=== PATIENT | female | born 1935 | race Caucasian/White ===

== ENCOUNTER → 2019-11-04 | Outpatient (CLI) | payer OTHER ==
[~2019-11-04] MED LIST: ADULT LOW DOSE81 MG PO; BONIVA150 MG PO; BYSTOLIC 5 MG5 M1 PO; HYDROCHLOROTHIA25 M1 PO; TRAVATAN 0.004%5 ML OP
--- NOTE | 2019-11-05 16:05 | SLEEP ---
[address] [address] SLEEP STUDY REPORT Name: DAPHNEDELMAR Elio Room: [facility]#: [id number] Admission: 11/04/19 Attend Phys: Erika Laughlin MD Discharge: Date of : 39 Report #: [id number] THIS REPORT FOR: //name// CC: Erika Laughlin This study has been reviewed in its entirety by a board certified sleep specialist DATE OF SERVICE: 11/04/2019 REFERRING PHYSICIAN: Erika Laughlin MD The patient is 84 years old, who weighs 215 pounds with a BMI of 34.7. The patient's [place] score was 7. The patient underwent diagnostic sleep study performed at [facility]. During the night study, the patient spent 451 minutes in bed and slept for 243 minutes with a sleep efficiency of 53%, which is low. Sleep latency was 43 minutes with a REM latency of 233 minutes. Sleep architecture showed normal stage 1 sleep, increased stage 2 sleep, normal slow wave, and reduced REM sleep. During the night study, the patient had 11 obstructive apneas, 1 central apnea, no mixed apneas, and 20 hypopneas. The patient's AHI was 7.9 per hour with a supine AHI of 10.5 per hour. No significant REM sleep-related SAADIA seen. EKG monitoring revealed an average heart rate of 61 beats per minute. No sustained arrhythmias observed. PLMs were seen at an index of 114 per hour and 10 per hour caused EEG arousals. Nocturnal oximetry study revealed an average oxygen saturation of 94% with lowest of 89%. Due to low AHI, the patient did not meet the split night criteria for CPAP initiation. IMPRESSION: 1. Mild sleep apnea-hypopnea syndrome at an AHI of 7.9 per hour. 2. 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 3. Severe periodic limb movements. 4. No clinically significant nocturnal hypoxia. RECOMMENDATIONS: 1. The patient did not meet the split night criteria for CPAP initiation [place] [address] SLEEP STUDY REPORT Name: DELMAR SERNA Room: [facility]#: [id number] Admission: 11/04/19 Attend Phys: Erika Laughlin MD Discharge: Date of : 39 Report #: [id number] 2. The patient has mild sleep apnea. I would recommend weight loss as the initial form of treatment. 3. If the patient remains clinically symptomatic or has other comorbid conditions, then consider treatment of sleep apnea with either CPAP or oral appliance. 4. If the patient's insomnia is chronic, then it should be further evaluated and treated according to the etiology. 5. The patient should also be further evaluated for symptoms of restless legs during the day. The patient had severe PLMs. 6. Avoid [employer] depressants. 7. Cautioned regarding driving until the patient's hypersomnia is resolved with the above recommendations. <ELECTRONICALLY SIGNED> By: Rich Hale MD 11/05/19 1605 [id number] Hale MD /nt
== END ==
LOC: M.SLEEPLAB 19:55
DX: G47.33 Obstructive sleep apnea (adult) (pediatric) (principal); G47.34 Idiopathic sleep related nonobstructive alveolar hypoventilation

== ENCOUNTER 2019-11-19 14:55 | Emergency (ER) | payer OTHER ==
[~2019-11-19] VITALS: Ht 167.6 cm; Wt 97.5 kg
[~2019-11-19 14:55] MED LIST changes: +FUROSEMIDE 20 M20 MG PO; -HYDROCHLOROTHIA25 M1 PO
[2019-11-19] MEDS ORDERED: FAMOTIDINE40 MG PO (15:11)
[2019-11-19] MEDS ORDERED: CELEBREX 200 M200 MG PO (15:11)
[2019-11-19] MEDS ORDERED: OMEPRAZOLE40 MG PO (15:11)
[2019-11-19] MEDS ORDERED: TOPROL XL100 MG PO (15:12)
[2019-11-19] MEDS ORDERED: PRESERVISION A1 EAC2 PO (15:12)
[2019-11-19] MEDS ORDERED: LIPITOR40 MG PO (15:12)
[2019-11-19] MEDS ORDERED: XALATAN2.5 ML OPHTHALMIC (15:12)
[2019-11-19] MEDS ORDERED: KLOR-CON 10 ER10 MEQ PO (15:12)
[2019-11-19] MEDS ORDERED: CALCIUM + D SO1 EACH PO (15:13)
[2019-11-19] MEDS ORDERED: CULTURELLE1 EACH PO (15:13)
[2019-11-19] MEDS ORDERED: CELEXA 10 MG TA10 M1 PO (15:13)
[2019-11-19] MEDS ORDERED: AUGMENTIN 500-1 EACH PO (17:16)
[2019-11-19 17:35] VITALS: BP 115/95
== END 2019-11-19 17:37 | disposition home or self-care (01) ==
LOC: M.ERS 14:55
DX: S01.81XA Laceration without foreign body of other part of head, initial encounter (principal); J32.9 Chronic sinusitis, unspecified; I10 Essential (primary) hypertension; K21.9 Gastro-esophageal reflux disease without esophagitis; Z95.2 Presence of prosthetic heart valve; Z88.5 Allergy status to narcotic agent; Z91.040 Latex allergy status; W18.39XA Other fall on same level, initial encounter; Y92.002 Bathroom of unspecified non-institutional (private) residence as the place of occurrence of the external cause; Y93.89 Activity, other specified; Y99.8 Other external cause status